=== PATIENT | male | born 1985 | race Caucasian/White ===

== ENCOUNTER 2019-08-27 22:14 | Emergency (ER) | payer MEDICAID ==
[~2019-08-27] VITALS: Ht 170.2 cm; Wt 74.8 kg
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
[2019-08-27 22:24] VITALS: BP 127/80
[2019-08-27] MEDS ORDERED: KLONOPIN1 MG ORAL (22:24)
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
[2019-08-27] MEDS ORDERED: ZyPREXA Zydis 5mg tab ORAL ONE (22:45)
[2019-08-27] MEDS ORDERED: Ketorolac 30mg Inj IV ONE (22:45)
[2019-08-27 22:49] LABS: BASOPHILS % (AUTO) 1.2 % (0.0-2.0); EOSINOPHILS % (AUTO) 0.6 % (0.0-3.0); HEMATOCRIT 41.9 % (42.0-52.0); HEMOGLOBIN 13.7 G/DL (14.2-18.0); MEAN CORPUSCULAR VOLUME 92 FL (80-99); MONOCYTES % (AUTO) 7.6 % (1.0-10.0); NEUTROPHILS % (AUTO) 66.7 % (45.0-75.0); PLATELET COUNT 267 K/UL (150-450); RED BLOOD COUNT 4.56 M/UL (4.70-6.10); RED CELL DISTRIBUTION WIDTH 11.9 % (11.6-14.8); WHITE BLOOD COUNT 8.6 K/UL (4.8-10.8)
--- NOTE | 2019-08-27 22:58 | Diagnostic Imaging Report ---
EXAM: XR Lumbosacral Spine, 2 or 3 Views CLINICAL HISTORY: PAIN TECHNIQUE: Frontal and lateral views of the lumbar spine and sacrum. COMPARISON: No relevant prior studies available. FINDINGS: Vertebrae: Unremarkable. No acute fracture. Normal alignment. Sacrum/coccyx: Unremarkable as visualized. No acute fracture. Disc spaces: No acute findings. No significant narrowing. Soft tissues: Unremarkable. IMPRESSION: Unremarkable lumbar spine x-rays.
--- NOTE | 2019-08-27 22:59 | Diagnostic Imaging Report ---
EXAM: XR Chest, 1 View CLINICAL HISTORY: PAIN TECHNIQUE: Frontal view of the chest. COMPARISON: No relevant prior studies available. FINDINGS: Lungs: Unremarkable. No consolidation. Pleural space: Unremarkable. No pneumothorax. Heart: Unremarkable. No cardiomegaly. Mediastinum: Unremarkable. Bones/joints: Unremarkable. IMPRESSION: 1. No acute cardiopulmonary disease. 2. If there is continued concern recommend frontal and lateral chest radiographs or CT.
[2019-08-27 23:00] LABS: ANION GAP 15 mmol/L (5-15); BLOOD UREA NITROGEN 22 mg/dL (7-18); CALCIUM 9.3 MG/DL (8.5-10.1); CARBON DIOXIDE 25 MMOL/L (21-32); CHLORIDE 103 MMOL/L (98-107); CREATININE 0.9 MG/DL (0.55-1.30); POTASSIUM 3.6 MMOL/L (3.5-5.1); SODIUM 143 MMOL/L (136-145)
--- NOTE | 2019-08-27 23:00 | NUR ---
ED Nurse Note: Recieved report from JOSÉ LUIS Jeogn to to resume care, pt in bed resting quietly, appears drowsy and slightly sedated, speaks with slow spech and low red eyes, pt has patent IV in right arm with fluids infusing, pt ahs been medicated for pain and states not effective, MD aware, pt to have fluids completed then d/c to home, will resume care as ordered.
[2019-08-27 23:05] LABS: ALANINE AMINOTRANSFERASE 35 U/L (12-78); ALBUMIN 3.9 G/DL (3.4-5.0); ALKALINE PHOSPHATASE 73 U/L (46-116); ASPARTATE AMINO TRANSFERASE 29 U/L (15-37); BILIRUBIN,TOTAL 0.8 MG/DL (0.2-1.0)
[2019-08-27] MEDS ORDERED: ROBAXIN-500MG ORAL (23:14)
[2019-08-27] MEDS ORDERED: COLACE100 MG ORAL (23:14)
[2019-08-27 23:20] VITALS: BP 109/62
[2019-08-27] MEDS ORDERED: Tetanus/Diptheria/Pertussis IM ONE (23:30)
[2019-08-28 01:15] VITALS: BP 113/59
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
[2019-08-28 01:25] VITALS: BP 113/59
--- NOTE | 2019-08-28 01:25 | NUR ---
ER DISCHARGE NOTE: Patient is cleared to be discharged per ERMD, pt is aox4, on room air, with stable vital signs. pt was given dc and prescription instructions, pt was able to verbalize understanding, pt id band and iv site removed without complications. pt is able to ambulate with steady gait. pt took all belongings.
[2019-08-28] MEDS ORDERED: IBUPROFEN600 M1 ORAL (08:28)
== END 2019-08-28 01:25 | disposition home or self-care (01) ==
LOC: EDBD 22:14 → EMR 22:26
DX: S00.83XA Contusion of other part of head, initial encounter (principal); S39.012A Strain of muscle, fascia and tendon of lower back, initial encounter; Y09 Assault by unspecified means; Y92.9 Unspecified place or not applicable; Z88.8 Allergy status to other drugs, medicaments and biological substances
CPT/HCPCS: 36415; 71045; 72020; 80053; 85025; 90471; 90715; 96361; 96374; J1885; Z7502; 99284

== ENCOUNTER 2019-08-28 07:03 | Emergency (ER) | payer MEDICAID ==
[~2019-08-28] VITALS: Ht 170.2 cm; Wt 70.3 kg
[~2019-08-28 07:03] MED LIST: COLACE100 MG ORAL; KLONOPIN1 MG ORAL; ROBAXIN-500MG ORAL
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
[2019-08-28] MEDS ORDERED: Acetaminophen 500mg (ES) tab ORAL ONE (07:15)
--- NOTE | 2019-08-28 08:12 | Diagnostic Imaging Report ---
EXAM: XR Right Foot Complete, 3 or More Views CLINICAL HISTORY: PAIN TECHNIQUE: Frontal, lateral and oblique views of the right foot. COMPARISON: No relevant prior studies available. FINDINGS: Bones/joints: There is a mildly comminuted, mildly angulated oblique fracture of the distal shaft and metaphysis of the fifth metatarsal. No additional acute fractures are identified. The midfoot and hindfoot appear intact. There is been ORIF of the distal fibula fracture. No dislocation. Soft tissues: Unremarkable. No radiopaque foreign body. IMPRESSION: Mildly comminuted displaced fracture of the distal shaft and metaphysis of the fifth metatarsal.
[2019-08-28] MEDS ORDERED: IBUPROFEN600 M1 ORAL (08:28)
--- NOTE | 2019-08-28 11:17 | NUR ---
ER DISCHARGE NOTE: Patient is cleared to be discharged per ERMD, pt is aox4, on room air, with stable vital signs. pt was given dc and prescription instructions, pt was able to verbalize understanding, pt id band removed. pt is able to ambulate with steady gait with crutches. Splint applied by hodan Paredes. pt took all belongings. Ortho MD referrals provided.
[2019-08-28 11:18] VITALS: BP 116/72
== END 2019-08-28 11:22 | disposition home or self-care (01) ==
LOC: EDUNIT# 07:03 → EDBD 07:03 → EMR 07:11
DX: S92.351A Displaced fracture of fifth metatarsal bone, right foot, initial encounter for closed fracture (principal); W01.0XXA Fall on same level from slipping, tripping and stumbling without subsequent striking against object, initial encounter; Y92.9 Unspecified place or not applicable; Z88.8 Allergy status to other drugs, medicaments and biological substances; I10 Essential (primary) hypertension
CPT/HCPCS: 29515; 73630; Z7502; 99284